=== PATIENT | female | born 1960 | race Caucasian/White ===

== ENCOUNTER 2024-10-11 09:10 | Emergency (ER) | payer MEDICARE, BC ==
--- NOTE | 2024-10-11 09:52 | ED ---
Upper Extremity HPI - General Stated Complaint: Right hand injury Time Seen by Provider: 10/11/24 09:51 Source: patient, family, RN notes reviewed Mode of arrival: ambulatory Limitations: no limitations - History of Present Illness Initial Comments: 64-year-old female presented to ER for evaluation of right wrist injury. Patient reports this morning while walking outside a bat flew out and scared patient causing her to fall. She states she fell landing on her right wrist. Patient reports pain, deformity and swelling to right wrist. She denies any head injury, loss of consciousness or blood thinner use. Patient denies any elbow, shoulder or neck pain. She has not taken anything for pain at this time. Denies paresthesias to right upper extremity. No other injuries or complaints. - Related Data Previous Rx's Medication Instructions Recorded HYDROcodone/APAP 5-325MG [Oakwood 5] 1 each PO Q6HR PRN #12 tab 10/11/24 Allergies Allergy/AdvReac Type Severity Reaction Status Date / Time No Known Allergies Allergy Verified 10/11/24 10:16 Review of Systems ROS Statement: Those systems with pertinent positive or pertinent negative responses have been documented in the HPI. ROS Other: All systems not noted in ROS Statement are negative. General Exam - General Exam Comments Initial Comments: Visual Physical Exam Vital signs reviewed General: Well-appearing, nontoxic, no acute distress. Head: Normocephalic, atraumatic Eyes: PERRLA, EOMI ENT: Airway patent Chest: Nonlabored breathing Skin: No visual rash, normal skin tone Neuro: Alert and oriented 3 Musculoskeletal: Edema right wrist Limitations: no limitations General appearance: alert, in no apparent distress Neck exam: Present: normal inspection. Absent: tenderness, meningismus, lymphadenopathy Respiratory exam: Present: normal lung sounds bilaterally. Absent: respiratory distress, wheezes, rales, rhonchi, stridor Cardiovascular Exam: Present: regular rate, normal rhythm, normal heart sounds. Absent: systolic murmur, diastolic murmur, rubs, gallop, clicks Extremities exam: Present: tenderness (Right wrist. There is edema and dorsal deformity noted.), normal capillary refill (2+ right radial pulse), other (no anatmoical snuffbox tenderness) Neurological exam: Present: alert, oriented X3, CN II-XII intact Skin exam: Present: warm, dry, intact, normal color. Absent: rash Course Vital Signs 10/11/24 10/11/24 10:11 12:34 Temperature 98.2 F Pulse Rate 85 74 Respiratory 22 18 Rate Blood Pressure 121/72 105/72 O2 Sat by Pulse 98 100 Oximetry Procedures - Orthopedic Splinting/Casting Injury #1 Side: right Upper Extremity Injury Location: wrist Upper Extremity Immobilizer: sugar tong splint Medical Decision Making - Medical Decision Making I performed the quick note portion of this chart. Electronically signed by Raphael Fox PA-C Was pt. sent in by a medical professional or institution ([facility], OPERATIONS PROCESSOR, urgent care, hospital, or detention...) When possible be specific @ -No Did you speak to anyone other than the patient for history (EMS, parent, family, police, friend...)? What history was obtained from this source @ -No Did you review nursing and triage notes (agree or disagree)? Why? @ -I reviewed and agree with nursing and triage notes Were old charts reviewed (outside hosp., previous admission, EMS record, old EKG, old radiological studies, urgent care reports/EKG's, detention records)? Report findings @ -No old charts were reviewed Differential Diagnosis (chest pain, altered mental status, abdominal pain women, abdominal pain men, vaginal bleeding, weakness, fever, dyspnea, syncope, headache, dizziness, GI bleed, back pain, seizure, CVA, palpatations, mental health, musculoskeletal)? @Differential Musculoskeletal: Muscular strain, contusion, ligament sprain, fracture, arthritis, septic arthritis, bursitis, cellulitis, muscle spasm, nerve compression, DVT, arterial occlusion, herpes zoster, electrolyte abnormality, tumor.... This is not meant to be in all inclusive list EKG interpreted by me (3pts min.). @ -None done X-rays interpreted by me (1pt min.). @ -Right wrist x-ray interpreted by me significant for a comminuted distal radius fracture. CT interpreted by me (1pt min.). @ -None done U/S interpreted by me (1pt. min.). @ -None done What testing was considered but not performed or refused? (CT, X-rays, U/S, labs)? Why? @ -None What meds were considered but not given or refused? Why? @ -None Did you discuss the management of the patient with other professionals (professionals i.e. , PA, OPERATIONS PROCESSOR, lab, RT, psych nurse, social science manager, clothespin drier operator, teacher, electorate officer, returned case inspector)? Give summary @ -No Was smoking cessation discussed for >3mins.? @ -No Was critical care preformed (if so, how long)? @ -No Were there social determinants of health that impacted care today? How? (Homelessness, low income, unemployed, alcoholism, drug addiction, transportation, low edu. Level, literacy, decrease access to med. care, [facility], rehab)? @ -No Was there de-escalation of care discussed even if they declined (Discuss DNR or withdrawal of care, Hospice)? DNR status @ -No What co-morbidities impacted this encounter? (DM, HTN, Smoking, COPD, CAD, Cancer, CVA, ARF, Chemo, Hep., AIDS, mental health diagnosis, sleep apnea, morbid obesity)? @ -None Was patient admitted / discharged? Hospital course, mention meds given and route, prescriptions, significant lab abnormalities, going to OR and other pertinent info. @ -Discharge. 64-year-old female presented to ER for evaluation of right wrist injury. Vital signs stable. On examination, patient is neurovascularly intact. There is dorsal angulation noted to right wrist. No right anatomical snuffbox tenderness. X-rays concerning of a comminuted distal radius fracture manage patient will be placed in a sugar-tong splint. Shoulder sling provided for comfort. Patient provided with an ice pack and ibuprofen for pain control in the emergency department. Return parameters discussed. Patient discharged in stable condition advised follow-up with orthopedics, referral given. Advised aprs-[id number]-dlpfaqh ibuprofen and Tylenol for pain control at home. Oakwood was prescribed for extreme pain. Patient verbally expressed understanding agreement with care plan. Case discussed with ED attending, Dr. Lee. Undiagnosed new problem with uncertain prognosis? @ -No Drug Therapy requiring intensive monitoring for toxicity (Heparin, Nitro, Insulin, Cardizem)? @ -No Were any procedures done? @ -Yes Diagnosis/symptom? @ -Distal radius fracture Acute, or Chronic, or Acute on Chronic? @ -Acute Uncomplicated (without systemic symptoms) or Complicated (systemic symptoms)? @ -Uncomplicated Side effects of treatment? @ -No Exacerbation, Progression, or Severe Exacerbation? @ -No Poses a threat to life or bodily function? How? (Chest pain, [place], NC, pneumonia, PE, COPD, DKA, ARF, appy, cholecystitis, CVA, Diverticulitis, Homicidal, Suicidal, threat to staff... and all critical care pts) @ -No - Radiology Data Radiology results: report reviewed, image reviewed Disposition Clinical Impression: Distal radius fracture Disposition: HOME SELF-CARE Condition: Stable Instructions (If sedation given, give patient instructions): Arm Fracture in Adults (ED) Additional Instructions: Alternate [id number] ibuprofen and Tylenol for pain control. You may take Oakwood as prescribed for extreme pain. Do not take [id number]-[id number] Tylenol with Oakwood. Follow-up with orthopedics. Return to the ER for any new or worsening concerns. Prescriptions: HYDROcodone/APAP 5-325MG [[place]wood 5] 1 each PO Q6HR PRN #12 tab PRN Reason: Pain Is patient prescribed a controlled substance at d/c from ED?: Yes When asked, does pt state using other controlled substances?: No If prescribed controlled substance>3 days was MAPS reviewed?: Prescribed <3 Days If opioid is for acute pain is fill amount 7 days or less?: Yes If Rx opioid, was Start Talking consent form obtained?: Yes Referrals: Naye Cruz DO [Primary Care Provider] - 1-2 days Jeferson El DO [Doctor of Osteopathic Medicine] - 1-2 days Time of Disposition: 12:15
[2024-10-11 10:17] VITALS: TEMP 98.2
[2024-10-11] MEDS: IBUPROFEN 600 MG TAB PO STA (11:54)
--- NOTE | 2024-10-11 11:57 | XR ---
EXAMINATION TYPE: XR hand complete RT DATE OF EXAM: 10/11/2024 11:19 AM COMPARISON: None. CLINICAL INDICATION: Female, 64 years old with history of fall, pain TECHNIQUE: 3 view(s) obtained. FINDINGS: There is a fracture of the right radius and ulnar styloid. Please see wrist dictation same date. Within the hand no acute osseous abnormality evident. Metacarpal phalangeal joint spaces and proximal and distal interphalangeal joint spaces are preserved. Soft tissues are normal. Follow-up can be performed as clinically indicated. IMPRESSION: 1. Distal radius and ulnar fractures. Please see wrist dictation same date. 2. No acute fracture within the hand. [facility], , 10/11/2024 11:55 AM
--- NOTE | 2024-10-11 11:59 | XR ---
EXAMINATION TYPE: XR wrist complete RT DATE OF EXAM: 10/11/2024 11:17 AM COMPARISON: None. CLINICAL INDICATION: Female, 64 years old with history of fall, pain TECHNIQUE: 3 view(s) obtained. FINDINGS: There is a comminuted fracture distal metaphyseal radius with extension into the articular surface. T here is slight lateral subluxation of the distal radial fracture fragment. There is some dorsal angul ation of the distal radial fracture fragment. Overlying soft tissue swelling is present. There appears to be an ulnar styloid fracture, this may be old. IMPRESSION: 1. Comminuted fracture with intra-articular extension of the distal metaphyseal radial fracture. Jax e dorsal angulation is present. 2. Ulnar styloid fracture, may be an old fracture. [facility], , 10/11/2024 11:57 AM
[2024-10-11 12:36] VITALS: BP 105/72; PULSE 74; RESP 18
== END 2024-10-11 12:34 | disposition home or self-care (01) ==
LOC: EC 09:10
DX: S52.571A Other intraarticular fracture of lower end of right radius, initial encounter for closed fracture (principal); S52.611A Displaced fracture of right ulna styloid process, initial encounter for closed fracture; W18.30XA Fall on same level, unspecified, initial encounter; Y93.01 Activity, walking, marching and hiking
CPT/HCPCS: 29125; 99283